=== PATIENT | female | born 1945 | race Caucasian/White ===

== ENCOUNTER 2016-12-03 19:22 | Inpatient (IN) | payer MEDICARE ==
--- NOTE | ~2016-12-03 | OR ---
Unit #: [id number] #: [id number] Patient: JERO GONZALES [id number] [facility]. [address] [address] [id number] I MR#: [id number] NAME: JERO GONZALES ROOM: 465 Date of Procedure: 12/04/2016 Admission Date: 12/04/2016 Surgeon: Bob Stephen M.D. : 1945 Attending Physician: Shannon Chavarria M.D. Primary Care Physician: Jero Solis M.D. OPERATIVE REPORT PREOPERATIVE DIAGNOSIS Dislocated left shoulder. POSTOPERATIVE DIAGNOSIS Dislocated left shoulder. PROCEDURE PERFORMED Closed reduction. ANESTHESIA General with muscle relaxation. DESCRIPTION OF PROCEDURE The patient was brought to the operating room, given general anesthetic. Muscle relaxation was performed. We then manipulated the shoulder with longitudinal traction and adduction. An x-ray was obtained with the shoulder internally rotated and it showed that the glenohumeral joint was reduced and the greater tuberosity fragment was very close to be in anatomic position. She was placed into a sling and her general anesthetic was reversed. Dictated by... Kyleigh Gant/opal TD: 12/05/2016 03:38 JOB #: [id number] OPERATIVE REPORT Page 1 of 1 X Bob Stephen MD X PROCEDURE OPERATIVE NOTE
--- NOTE | ~2016-12-03 | CR229 ---
[facility] A Service of [facility] & [facility] RADIOLOGY TEXT RESULTS PATIENT: JERO GONZALES LOCATION: [place] [address] : 45 UNIT #: [id number] AGE: [address]: Shannon Chavarria MD SEX: F ORDER DR: [id number] [facility] [address] [facility]. [place], [place] [address] [id number] I MR#: [id number] Acc #: [id number] NAME: JERO GONZALES : 1945 SEX: F STUDY DATE/TIME: 12/03/2016 20:13 UNIT: CEDOF ROOM: [id number] STUDY DESCRIPTION: CR Shoulder Min 2 View Lt Attending Physician: Ismael Gaxiola M.D. Ordering Physician: Ed Doctor [id number] [facility] Primary Care Physician: Jero Solis M.D. MEDICAL IMAGING REPORT This report is preliminary unless electronic signature is present EXAM Left shoulder 3 views 12/03/2016 2013 hours HISTORY 71-year-old woman who fell on her left shoulder at 1:00 a.m. this morning. Severe pain. COMPARISON Chest 12/03/2011 FINDINGS AP views in internal-external rotation and a scapula Y-view are performed. The patient has an anterior dislocation with a displaced fragment from the proximal humerus measuring 3.5 x 1.2 cm. The glenoid appears intact. Post reduction films are recommended. IMPRESSION There is an acute anterior dislocation with a displaced fragment from the proximal humerus measuring 3.5 x 1.2 cm. Postreduction film is recommended. Dictated by... Carmen Santoyo M.D. THIS IS AN ELECTRONICALLY VERIFIED REPORT Carmen Santoyo M.D. at 12/04/2016 8:49 AM Sonia TD: 12/04/2016 07:28 JOB #: [id number] MEDICAL IMAGING REPORT Page 1 of 1 COPY
--- NOTE | ~2016-12-03 | DS ---
Unit #: [id number] #: [id number] Patient: JERO GONZALES [id number] [facility]. [place] [address] [place], [place] [address] [id number] I MR#: [id number] NAME: JERO GONZALES ROOM: 465 Age: 71 Sex: F Admission Date: 12/04/2016 : 1945 Discharge Date: 12/04/2016 Attending Physician: Shannon Chavarria M.D. Primary Care Physician: Jero Solis M.D. DISCHARGE SUMMARY ADMITTING DIAGNOSIS Dislocated left shoulder with greater tuberosity fracture. DISCHARGE DIAGNOSIS Dislocated left shoulder with greater tuberosity fracture. PROCEDURE IN THE HOSPITAL Closed reduction. Surgeon - Dr. Stephen. Anesthesia - general. HOSPITAL COURSE The patient was brought to the hospital, admitted for dislocated shoulder that happened early Sunday morning out of town. She was taken to the operating room where she underwent a successful closed reduction. She is in a sling. She will be up with physical therapy and then discharged home. She is to keep her sling in place at all times, ice to the shoulder. She was given a prescription for [place] 7.5 for pain and she will follow up in the office in one week. Dictated by... Kyleigh Gant/suman TD: 12/05/2016 09:19 JOB #: [id number] DISCHARGE SUMMARY Page 1 of 1 X Bob Stephen MD X DISCHARGE SUMMARY
--- NOTE | ~2016-12-03 | CR226 ---
[facility] A Service of [facility] & [facility] RADIOLOGY TEXT RESULTS PATIENT: JERO GONZALES LOCATION: [facility] 465-01 : 45 UNIT #: [id number] AGE: [address]: Shannon Chavarria MD SEX: F ORDER DR: [id number] [facility] [address] [facility] [place] [facility]. [place], [place] [address] [id number] I MR#: [id number] Acc #: [id number] NAME: JERO GONZALES : 1945 SEX: F STUDY DATE/TIME: 12/04/2016 10:28 UNIT: [facility] ROOM: [facility] STUDY DESCRIPTION: CR Shoulder 1 View Lt Attending Physician: Shannon Chavarria M.D. Ordering Physician: Bob Stephen M.D. Primary Care Physician: Jero Solis M.D. MEDICAL IMAGING REPORT This report is preliminary unless electronic signature is present EXAM Left shoulder one-view, 12/04/2016 10:28 hours HISTORY Closed reduction in operating room. Left shoulder fracture dislocation. COMPARISON 12/03/2016 FINDINGS Single AP view demonstrates interval reduction of the anterior dislocation. Fracture from the greater tuberosity is seen laterally. No new fracture seen. IMPRESSION Successful reduction of anterior dislocation. Large fragment from the greater tuberosity is seen laterally. No new fracture seen. Dictated by... Carmen Santoyo M.D. THIS IS AN ELECTRONICALLY VERIFIED REPORT Carmen Santoyo M.D. at 12/04/2016 2:29 PM Charli TD: 12/04/2016 12:26 JOB #: [id number] MEDICAL IMAGING REPORT Page 1 of 1 COPY
--- NOTE | ~2016-12-03 | CO ---
Unit #: [id number] #: [id number] Patient: JERO GONZALES [id number] [facility] [address] [facility]. [place], [place] [address] [id number] I MR#: [id number] NAME: JERO GONZALES ROOM: 465 Age: 71 Sex: F Admission Date: 12/04/2016 : 1945 Attending Physician: Shannon Chavarria M.D. Primary Care Physician: Jero Solis M.D. Consultation Date: 12/04/2016 CONSULTATION REPORT REASON FOR ADMISSION Left shoulder dislocation. ADMITTING PHYSICIAN Dr. Chavarria. CONSULTING PHYSICIAN Dr. Bob Stephen REASON FOR CONSULTATION Left shoulder dislocation. REASON FOR CONSULTATION Left shoulder dislocation. HISTORY OF PRESENT ILLNESS The patient presents today with complaints of left shoulder pain. The patient reports she was in [place] on Sunday and tripped over a duffle bag. She immediately developed pain in her left shoulder. The patient reports she was not able to move her left shoulder much without excruciating pain. She admits to decreased range of motion. She denies any numbness or tingling, fever or chills. The patient reports she came home to [place] for further evaluation. The patient then presented to [place] and it was found that she had a great tuberosity fracture and a left shoulder dislocation. PAST MEDICAL HISTORY 1. Degenerative joint disease. 2. Hypothyroidism. 3. Dyslipidemia. 4. History of reactive airway disease. 5. Reflux. 6. Hyperlipidemia. 7. Allergic rhinitis. PAST SURGICAL HISTORY 1. Screws in her left arm. 2. Left total hip replacement. 3. Left total knee replacement. FAMILY HISTORY Unit #: [id number] #: [id number] Patient: JERO GONZALES Positive for heart disease in her mother but she was at advanced age. SOCIAL HISTORY The patient denied any tobacco, alcohol or any IV drugs. ALLERGIES Penicillin, codeine, and Bactrim. MEDICATIONS 1. Metoprolol 25 mg daily. 2. Lisinopril 10 mg daily. 3. Prilosec 20 mg daily. 4. Levothyroxine 0.137 mcg daily. 5. Sertraline 100 mg daily. 6. Atorvastatin 40 mg daily. 7. Diclofenac 75 mg b.i.d. 8. Seroquel 100 mg daily. 9. Bupropion 150 mg daily. 10. Zyrtec 10 mg daily. 11. Aspirin 325 mg daily. 12. Melatonin 5 mg daily. 13. Vitamin D 5000 units daily. 14. Calcium 600 mg daily. 15. Advair inhaler b.i.d. p.r.n. 16. Biotin 5000 daily. REVIEW OF SYSTEMS CONSTITUTION: The patient denied any weight gain or weight loss. EYES: Denies any double vision or blurred vision. LUNGS: Denies any shortness of air or chronic cough. CARDIOVASCULAR: Denies any chest pain or irregular heartbeat. ABDOMEN: Denies any nausea or vomiting. MUSCULOSKELETAL: Admits to severe pain in her left shoulder and chronic arthritis. SKIN: Denies any rashes or lesions. NEUROLOGIC: Denies any numbness or tingling. Twelve complete systems in total were reviewed and negative other than above. PHYSICAL EXAMINATION GENERAL: She is well developed, well nourished in no acute distress. She is alert and orientated x3. VITAL SIGNS: Her temperature 97.8, blood pressure 131/68, heart rate is 46, respirations 16. HEENT: Normocephalic, atraumatic. PERRLA. Extraocular movements intact. Conjunctivae clear. NECK: Supple. No thyromegaly. LUNGS: Clear to auscultation. No accessory muscle use. Equal expansion bilaterally. CARDIOVASCULAR: S1, S2. ABDOMEN: Soft, nontender, nondistended. Positive bowel sounds. MUSCULOSKELETAL: Examination of the patient's left upper extremity reveals she has deformity consistent with dislocation. Range of motion deferred because of known dislocation. The patient did have 2+... Unit #: [id number] #: [id number] Patient: JERO GONZALES Dictated by... Jorge Luis Sellers P.A.-C- for Kyleigh Gant TD: 12/04/2016 09:27 JOB #: [id number] CONSULTATION REPORT Page 1 of 1 X X CONSULTATION REPORT
--- NOTE | ~2016-12-03 | CR226 ---
[facility] A Service of [facility] & [facility] RADIOLOGY TEXT RESULTS PATIENT: JERO GONZALES LOCATION: [facility] 465-01 : 45 UNIT #: [id number] AGE: [address]: Shannon Chavarria MD SEX: F ORDER DR: [id number] [facility] [address] [facility] [place] [facility]. [place], [place] [address] [id number] I MR#: [id number] Acc #: [id number] NAME: JEOR GONZALES : 1945 SEX: F STUDY DATE/TIME: 12/03/2016 23:50 UNIT: [facility] ROOM: [facility] STUDY DESCRIPTION: CR Shoulder 1 View Lt Attending Physician: Shannon Chavarria M.D. Ordering Physician: Iglesia Matias D.O. Primary Care Physician: Jero Solis M.D. MEDICAL IMAGING REPORT This report is preliminary unless electronic signature is present EXAM Left shoulder, 12/03/2016 (23:50 hours) HISTORY Left shoulder dislocation now status post attempted reduction. TECHNIQUE Single AP radiograph of the left shoulder. FINDINGS The exam shows unsuccessful reduction of persistent anterior subcoracoid shoulder dislocation. There is a large displaced fracture fragment within the joint arising from the greater tuberosity of the humeral head. No visible glenoid fracture. No change since the earlier study. Dictated by... Coy Alatorre M.D. THIS IS AN ELECTRONICALLY VERIFIED REPORT Coy Alatorre M.D. at 12/04/2016 9:57 PM Kelly TD: 12/04/2016 08:47 JOB #: [id number] MEDICAL IMAGING REPORT Page 1 of 1 COPY
--- NOTE | ~2016-12-03 | EKG ---
PATIENT: JERO GONZALES UNIT #: [id number] Ventricular Rate: 64 BPM Atrial Rate: 64 BPM P-R Interval: 150 ms QRS Duration: 94 ms Q-T Interval: 448 ms QTC Calculation(Bezet): 462 ms P [place]: 39 degrees Calculated R [place]: 9 degrees Calculated T [place]: 28 degrees Diagnosis Line: Normal sinus rhythm Diagnosis Line: Normal ECG Diagnosis Line: When compared with ECG of 05-DEC-2011 10:34, Diagnosis Line: PVC's no longer Present Diagnosis Line: Confirmed by WELLINGTON SANTIAGO MD ([id number]) on Diagnosis Line: 12/04/2016 10:47:21 PM INTERPRETING MD: MILTON
--- NOTE | ~2016-12-03 | DS ---
Unit #: [id number] #: [id number] Patient: JERO GONZALES [id number] [facility]. [address] [address] [id number] I MR#: [id number] NAME: JERO GONZALES ROOM: 465 Age: 71 Sex: F Admission Date: 12/04/2016 : 1945 Discharge Date: Attending Physician: Shannon Chavarria M.D. Primary Care Physician: Jero Solis M.D. DISCHARGE SUMMARY CHIEF COMPLAINT Left shoulder pain. HISTORY OF PRESENT ILLNESS Ms. Gonzales is a 71 year old with history of COPD, admitted one day prior to the admission with a fall and pain in the left shoulder. X-ray shows left shoulder fracture and dislocation. Patient is seen by orthopedic doctor, Dr. Stephen. Patient had surgery with closed reduction. Currently, pain is around 4/10. Able to ambulate. Getting better with p.o. pain medication. Orthopedic doctor is okay for the patient to be discharged. Patient had a fall, accidental. No fever. No chills. No dizziness. No syncope. No chest pain. No shortness of breath. No leg swelling. PAST MEDICAL HISTORY 1. History of sleep apnea on CPAP. 2. History of asthma. 3. Angina. 4. Acid reflux. 5. Hypothyroidism. 6. Depression. 7. Arthritis. 8. Hyperlipidemia. SOCIAL HISTORY No alcohol. No drugs. No smoking. FAMILY HISTORY Positive for heart disease. ALLERGIES Sulfa, codeine, sulfamethoxazole, trimethoprim. CURRENT HOME MEDICATIONS 1. Aspirin 325 p.o. daily. 2. Simvastatin 20 daily. 3. Omeprazole 20 daily. 4. Sertraline 100 daily. 5. Synthroid 0.137 mcg daily. 6. Symbicort 160 mcg two puffs inhalation b.i.d. 7. Lisinopril 10 mg daily. 8. Lopressor 25 p.o. b.i.d. 9. Diclofenac one tablet p.o. b.i.d. 10. Melatonin 5 mg at bedtime. 11. Calcium 600 daily. Unit #: [id number] #: [id number] Patient: JERO GONZALES 12. Vitamin D 4000 daily. DISCHARGE MEDICATIONS Along with her home medications as listed above, patient is being discharged on [place] 7.5 mg one tablet q.3-4 hours p.r.n. pain. REVIEW OF SYSTEMS No leg swelling. No skin rash. No weakness, numbness, tingling. Reviewed 12-point system with her which is negative except as in HPI. PHYSICAL EXAMINATION VITAL SIGNS: Temperature 97.8, pulse 46, respirations 16, blood pressure 131/68. GENERAL: A 71 year old lying on bed postop with left shoulder sling. Alert and oriented x3. HEENT: Dry mucosa present. NECK: Supple. HEART: S1, S2. Regular rhythm. No murmur. LUNGS: Clear to auscultation. No crackles. ABDOMEN: Soft, nontender. Bowel sounds present. EXTREMITIES: No pedal edema. SKIN: No rash. NEUROLOGIC: No focal neurological deficits. DIAGNOSTIC STUDIES LABORATORY: WBC 8.6, hemoglobin 13.3, platelets 174,000. Sodium 140, potassium 4.1, creatinine 0.9. TSH 1.64. BMI 42. IMAGING: X-ray of the left shoulder shows anterior subcoracoid shoulder dislocation with a large displaced fracture fragment within the joint arising from the greater tuberosity of the humeral head. DISCHARGE DIAGNOSES 1. Left humeral fracture and dislocation. The patient is seen by Dr. Stephen. Patient had closed reduction. Currently, pain tolerating well. Patient will be discharged on pain medications with home health. 2. Morbid obesity secondary to calories. 3. Hypothyroidism: Continue with Synthroid. Dictated by... Kyleigh Sanchez/veto TD: 12/04/2016 16:27 JOB #: [id number] Unit #: [id number] #: [id number] Patient: JERO GONZALES DISCHARGE SUMMARY Page 1 of 1 X Shannon Chavarria MD X DISCHARGE SUMMARY
--- NOTE | ~2016-12-03 | BMI ---
[facility] Nutrition Therapy DATE: 12/04/16 Patient: JERO GONZALES Physician: KATERINA Address: [address] [place] [address] DRIVE Room/Bed: [address] [place] [address], Zip: [place] [address] Admit Date: 12/04/16 Date of : [birth year] Height: 5 4 Weight: 249 113.3 HIGH BMI NOTE: DX: 71 Y.O. FEMALE ADMITTED FOR LEFT SHOULDER FX. ANTHROPOMETRICS: 5'4" WT: 250# (PER PATIENT) (114 KG) BMI: 42 DIET: REGULAR DIET INTERVENTION: 1. REGULAR DIET RECOMMENDATIONS: 1. RECOMMEND TO CHANGE DIET TO HEALTHY HEART DIET TO PROMOTE GRADUAL WEIGHT LOSS TOWARDS A HEALTHY BMI (19.0-25.0) OR +/-10% IBW. RD WILL F/U PER PROTOCOL. Respectfully, LINSEY ROGERS, LINE O SCRIBE OPERATOR LAST CHAVIS MS, RD, LD Food and Nutritional Services [facility] cc: client file
--- NOTE | ~2016-12-03 | CO ---
Unit #: [id number] #: [id number] Patient: [facility]ALES [id number] [facility] [address] [place], [place] [address] [id number] I MR#: [id number] NAME: JERO GONZALES ROOM: 465 Age: 71 Sex: F Admission Date: 12/04/2016 : 1945 Attending Physician: Shannon Chavarria M.D. Primary Care Physician: Jero Solis M.D. Consultation Date: 12/04/2016 CONSULTATION REPORT ADDENDUM PHYSICAL EXAMINATION EXTREMITIES: The patient's left upper extremity revealed she has deformity consistent with dislocated left shoulder. She had decreased range of motion because of known dislocation. The patient did have 2+ edema in her left shoulder. There were no other masses appreciated. The patient did have full range of motion of her left elbow and left wrist. She had 2+ brachial and radial pulses. She had good capillary refill. No clubbing or cyanosis, but did have edema in her left shoulder. SKIN: Warm, dry, and intact. No rash, lesions, or ulcers. NEUROLOGIC: Limited orthopedic exam. Was able to move all 4 extremities, but admitting that she had a lot of pain in her left shoulder with range of motion. DIAGNOSTIC STUDIES LABORATORY RESULTS: WBC 7.0, hemoglobin 13.3, platelets 167. IMAGING STUDIES: X-rays 3 views were reviewed of her left shoulder, which did show an acute anterior dislocation with displacement fragment from the proximal humerus 3.5 x 1.2 consistent with a greater tuberosity fracture. ASSESSMENT 1. Left shoulder dislocation. 2. Left greater tuberosity fracture. PLAN We will keep the patient n.p.o. We will plan on closed reduction later today by Dr. Stephen. If Dr. Stephen is going to do this closed and if in fact she needs opening, we will have to make other arrangements. Plan for later today. Dictated by... Jorge Luis Sellers P.A.-C- for Kyleigh Gant/opal TD: 12/06/2016 06:00 JOB #: [id number] Unit #: [id number] #: [id number] Patient: JERO GONZALES CONSULTATION REPORT Page 1 of 1 X X CONSULTATION REPORT
[~2016-12-03 19:22] MED LIST: ALPRAZOLAM PO; CALCIUM + D 6001 TA1 PO; COUMADIN PO; ECOTRIN325 MG PO; ETODOLAC600 MG PO; GLYCOSAMINE; LISINOPRIL10 MG PO; LODINE PO; LOPRESSOR PO; LORTAB 7.5-5001 TAB PO; MILK OF MAGNESIA PO; MULTI-DAY VITAM1 TAB PO; MULTI-VITAMIN1 TAB PO; NITROGLYCERIN0.3 MG SL; NITROSTAT0.4 MG SL; OMEPRAZOLE20 M1 PO; PRILOSEC PO; SERTRALINE HCL100 MG PO; SIMVASTATIN20 MG PO; SYMBICORT INH; SYNTHROID PO; SYNTHROID112 MCG PO; TYLENOL325 M1 PO; VISTARIL PO; ZOLOFT PO
[2016-12-03 22:54] LABS: BASOPHIL# 0.1 X10e3 (0-0.3); BASOPHIL% 0.7 % (0-2.5); EOSINOPHIL# 0.2 X10e3 (0-0.7); EOSINOPHIL% 2.4 % (0.0-7.0); HEMATOCRIT 40.4 % (35.0-45.0); HEMOGLOBIN 13.3 gm/dL (12.0-16.0); LYMPHOCYTE# 1.2 X10e3 (1.0-3.5); LYMPHOCYTE% 14.3 % (17.0-45.0); MEAN CELL VOLUME 94.7 FL (83-96); MEAN CORPUSCULAR HEMOGLOBIN 31.2 PG (28-34); MEAN PLATELET VOLUME 8.9 FL (6.5-11.5); MONOCYTE# 1.1 X10e3 (0-1.0); MONOCYTE% 13.4 % (3.0-12.0); NEUTROPHIL# 5.9 X10e3 (1.5-7.1); NEUTROPHIL% 69.2 % (40-75); PLATELET COUNT 174 X10e3 (140-420); RED BLOOD COUNT 4.27 X10e (3.90-5.30); RED CELL DISTRIBUTION WIDTH 13.5 % (11.0-15.5); WHITE BLOOD COUNT 8.6 X10e3 (4.0-10.5)
[2016-12-03 22:57] LABS: DIFF IND NO
[2016-12-03 23:17] LABS: BUN/CREATININE RATIO 25.55; CREATININE SERUM 0.9 mg/dL (0.6-1.4); GLOM FILT RATE Estimated 64.4 mL/min (>60); POTASSIUM 4.1 mmol/L (3.5-5.1)
[2016-12-04 06:55] LABS: BASOPHIL# 0.1 X10e3 (0-0.3); EOSINOPHIL# 0.2 X10e3 (0-0.7); EOSINOPHIL% 3.2 % (0.0-7.0); HEMATOCRIT 40.5 % (35.0-45.0); HEMOGLOBIN 13.3 gm/dL (12.0-16.0); LYMPHOCYTE# 1.4 X10e3 (1.0-3.5); LYMPHOCYTE% 20.2 % (17.0-45.0); MEAN CELL VOLUME 95.5 FL (83-96); MEAN CORPUSCULAR HEMOGLOBIN 31.4 PG (28-34); MEAN CORPUSCULAR HGB CONC 32.9 g/dL (30-36); MEAN PLATELET VOLUME 8.8 FL (6.5-11.5); MONOCYTE# 0.9 X10e3 (0-1.0); MONOCYTE% 13.1 % (3.0-12.0); NEUTROPHIL# 4.4 X10e3 (1.5-7.1); NEUTROPHIL% 62.5 % (40-75); PLATELET COUNT 167 X10e3 (140-420); RED BLOOD COUNT 4.24 X10e (3.90-5.30); RED CELL DISTRIBUTION WIDTH 13.7 % (11.0-15.5)
[2016-12-04 07:01] LABS: DIFF IND NO
[2016-12-04 07:35] LABS: BUN/CREATININE RATIO 21.11; CALCIUM SERUM 8.6 mg/dL (8.4-10.2); CREATININE SERUM 0.9 mg/dL (0.6-1.4); GLOM FILT RATE Estimated 64.4 mL/min (>60); POTASSIUM 4.1 mmol/L (3.5-5.1)
[2016-12-04] MEDS ORDERED: VOLTAREN75 MG (09:30)
[2016-12-04] MEDS ORDERED: MELATONIN5 M1 PO (09:33)
[2016-12-04] MEDS ORDERED: CALCIUM500 M1 PO (09:35)
[2016-12-04] MEDS ORDERED: VITAMIN D1000 UNIT PO (09:36)
[2016-12-04] MEDS ORDERED: HYDROCODON-ACE1 EAC9 PO (13:52)
[2017-03-19] MEDS ORDERED: LEVOTHYROXINE137 MCG PO (13:08)
[2017-03-19] MEDS ORDERED: LIPITOR40 MG PO (13:10)
[2017-03-19] MEDS ORDERED: WELLBUTRIN SR150 M1 PO (13:11)
[2017-03-19] MEDS ORDERED: QUETIAPINE FUM100 MG PO (13:11)
[2017-03-19] MEDS ORDERED: ZYRTEC10 M1 PO (13:12)
[2017-03-19] MEDS ORDERED: BACLOFEN10 MG PO (13:12)
[2017-03-19] MEDS ORDERED: CALCIUM 600 +1 EAC8 PO (13:13)
[2017-03-19] MEDS ORDERED: VITAMIN D35000 UNI1 PO (13:13)
[2017-03-19] MEDS ORDERED: MULTI VITAMIN1 EACH PO (13:14)
[2017-03-19] MEDS ORDERED: BIOTIN5000 MCG PO (13:14)
[2017-03-19] MEDS ORDERED: MURO-12815 M1 OU (13:15)
== END 2016-12-04 16:47 | disposition home or self-care (01) | DRG 563 ==
LOC: CED 19:22 → CEDOF 12-04 01:35 → C4C 12-04 07:52
PROVIDERS: Emergency Medicine; Orthopaedic Surgery
PROC: 0RSKXZZ Reposition Left Shoulder Joint, External Approach (ICD-10-PCS; principal; 2016-12-04 10:00)
DX: S42.252A Displaced fracture of greater tuberosity of left humerus, initial encounter for closed fracture (principal); Z68.41 Body mass index [BMI] 40.0-44.9, adult; W18.31XA Fall on same level due to stepping on an object, initial encounter; K21.9 Gastro-esophageal reflux disease without esophagitis; E03.9 Hypothyroidism, unspecified; F32.9 Major depressive disorder, single episode, unspecified; M19.90 Unspecified osteoarthritis, unspecified site; E78.5 Hyperlipidemia, unspecified; E66.01 Morbid (severe) obesity due to excess calories; Z88.2 Allergy status to sulfonamides; Z88.5 Allergy status to narcotic agent; Z88.1 Allergy status to other antibiotic agents; Z79.82 Long term (current) use of aspirin
CPT/HCPCS: 73020; 73030; 80048; 84443; 85025; 93005; 94640; 94760; 96374; 97116; 97161; 99285; G8978-GP; G8979-GP; G8980-GP; J1170; J2250; J2270; J2405; J3010

== ENCOUNTER → 2017-03-19 | Outpatient (CLI) | payer MEDICARE ==
[~2017-03-19] MED LIST changes: +BACLOFEN10 MG PO; +BIOTIN5000 MCG PO; +CALCIUM 600 +1 EAC8 PO; +CALCIUM500 M1 PO; +HYDROCODON-ACE1 EAC9 PO; +LEVOTHYROXINE137 MCG PO; +LIPITOR40 MG PO; +MELATONIN5 M1 PO; +MULTI VITAMIN1 EACH PO; +MURO-12815 M1 OU; +QUETIAPINE FUM100 MG PO; +VITAMIN D1000 UNIT PO; +VITAMIN D35000 UNI1 PO; +VOLTAREN75 MG; +WELLBUTRIN SR150 M1 PO; +ZYRTEC10 M1 PO
--- NOTE | ~2017-03-19 | EKG ---
PATIENT: JERO GONZALES UNIT #: [id number] Ventricular Rate: 42 BPM Atrial Rate: 41 BPM QRS Duration: 94 ms Q-T Interval: 496 ms QTC Calculation(Bezet): 414 ms Calculated R [place]: -13 degrees Calculated T [place]: 77 degrees Diagnosis Line: Junctional bradycardia Diagnosis Line: Abnormal ECG Diagnosis Line: When compared with ECG of 04-DEC-2016 09:53, Diagnosis Line: Junctional rhythm has replaced Sinus rhythm Diagnosis Line: Vent. rate has decreased BY 22 BPM Diagnosis Line: Confirmed by BRANDI DOMINGO MD ([id number]) on Diagnosis Line: 03/20/2017 12:33:23 PM INTERPRETING MD: JOSE L GUERRA
--- NOTE | ~2017-03-19 | CR229 ---
[facility] A Service of [facility] & [facility] RADIOLOGY TEXT RESULTS PATIENT: JERO GONZALES LOCATION: [facility] : 45 UNIT #: [id number] AGE: [address]: Adiel Kerns MD SEX: F ORDER DR: [id number] [place] [id number] [facility] [place] [facility]. [place], [place] [address] [id number] O MR#: [id number] Acc #: [id number] NAME: JERO GONZALES : 1945 SEX: F STUDY DATE/TIME: 03/19/2017 13:08 UNIT: [facility] ROOM: STUDY DESCRIPTION: CR Shoulder Min 2 View Lt Attending Physician: Adiel Kerns M.D. Referring Physician: Adiel Kerns M.D. Ordering Physician: Adiel Kerns M.D. Primary Care Physician: Jero Solis M.D. MEDICAL IMAGING REPORT This report is preliminary unless electronic signature is present EXAM Left shoulder 3 views, 03/19/2017 13:08 p.m. COMPARISON Left shoulder 1 view 12/04/2016. Hand and left shoulder 1 view 12/03/2016. HISTORY Order states left greater tuberosity fracture. Reverse total shoulder arthroplasty. History of shoulder dislocation. Pain. FINDINGS There is a subacute- appearing comminuted displaced greater tuberosity fracture of the humerus. A fracture fragment is suspected along the posterior side of the humeral head as well as in the subacromial region. Glenohumeral and AC joint alignment are normal. Partially visualized is plate and screw fixation of the shaft of the humerus. Left lung is clear. IMPRESSION Subacute-appearing comminuted greater trochanter displaced fracture, preop for shoulder arthroplasty. Dictated by... Rayna Ponce M.D. THIS IS AN ELECTRONICALLY VERIFIED REPORT Rayna Ponce M.D. at 03/20/2017 11:51 AM RG/souleymane TD: 03/20/2017 04:51 JOB #: [id number] [facility] A Service of [facility] & [facility] RADIOLOGY TEXT RESULTS PATIENT: JERO GONZALES LOCATION: [facility] : 45 UNIT #: [id number] AGE: [address]: Adiel Kerns MD SEX: F ORDER DR: MEDICAL IMAGING REPORT Page 1 of 1 COPY
--- NOTE | ~2017-03-19 | CR63 ---
[facility] A Service of [facility] & [facility] RADIOLOGY TEXT RESULTS PATIENT: JERO GONZALES LOCATION: [facility] : 45 UNIT #: [id number] AGE: [address]: Adiel Kerns MD SEX: F ORDER DR: [id number] [facility] [address] [place], [place] [address] [id number] O MR#: [id number] Acc #: [id number] NAME: JERO GONZALES : 1945 SEX: F STUDY DATE/TIME: 03/19/2017 13:07 UNIT: [facility] ROOM: STUDY DESCRIPTION: CR Chest 2 View Attending Physician: Adiel Kerns M.D. Referring Physician: Adiel Kerns M.D. Ordering Physician: Adiel Kerns M.D. Primary Care Physician: Jero Solis M.D. MEDICAL IMAGING REPORT This report is preliminary unless electronic signature is present EXAM Chest 03/19/17, [facility]. HISTORY 71-year-old female preop clearance for reverse total left shoulder arthroplasty. History of left shoulder dislocations, pain. Prior cardiac ablation. COMPARISON Portable chest 12/03/11. FINDINGS 2-view chest demonstrates normal stable heart size. Aorta is mildly ectatic. Bilateral lungs are expanded and clear. Abnormal left shoulder partially imaged. IMPRESSION Stable chest with no acute chest finding. Dictated by... Cuong Chi M.D. THIS IS AN ELECTRONICALLY VERIFIED REPORT Cuong Chi M.D. at 03/20/2017 8:05 AM VIVI/uzma TD: 03/20/2017 07:11 JOB #: [id number] MEDICAL IMAGING REPORT Page 1 of 1 COPY
[2017-03-19 12:35] LABS: HEMATOCRIT 41.5 % (35.0-45.0); HEMOGLOBIN 13.9 gm/dL (12.0-16.0); MEAN CELL VOLUME 94.5 FL (83-96); MEAN CORPUSCULAR HEMOGLOBIN 31.8 PG (28-34); MEAN CORPUSCULAR HGB CONC 33.6 g/dL (30-36); MEAN PLATELET VOLUME 8.8 FL (6.5-11.5); RED BLOOD COUNT 4.39 X10e (3.90-5.30); RED CELL DISTRIBUTION WIDTH 13.1 % (11.0-15.5); WHITE BLOOD COUNT 5.7 X10e3 (4.0-10.5)
[2017-03-19 12:46] LABS: PROTHROMBIN TIME (PATIENT) 10.8 SECONDS (10.0-11.7)
[2017-03-19 13:33] LABS: CALCIUM SERUM 8.9 mg/dL (8.4-10.2); CREATININE SERUM 1.2 mg/dL (0.6-1.4); GLOM FILT RATE Estimated 45.4 mL/min (>60); POTASSIUM 4.4 mmol/L (3.5-5.1)
== END | disposition home or self-care (01) ==
LOC: CAMB 11:31
PROVIDERS: Orthopaedic Surgery
DX: Z01.818 Encounter for other preprocedural examination (principal); S42.92XA Fracture of left shoulder girdle, part unspecified, initial encounter for closed fracture; R94.31 Abnormal electrocardiogram [ECG] [EKG]; R00.1 Bradycardia, unspecified
CPT/HCPCS: 36415; 71020; 73030; 80048; 85027; 85610; 86850; 86900; 86901; 87070; 93005